=== PATIENT | male | born 1965 | race Caucasian/White ===

== ENCOUNTER 2016-08-13 16:13 | Emergency (ER) | payer SELFPAY ==
[~2016-08-13] VITALS: Ht 182.9 cm; Wt 137.9 kg
[2016-08-13 18:53] VITALS: BP 144/92
== END 2016-08-13 18:54 | disposition home or self-care (01) ==
LOC: EME 16:13
DX: I10 Essential (primary) hypertension (principal); M54.31 Sciatica, right side; L40.9 Psoriasis, unspecified
CPT/HCPCS: 99281; 99284

== ENCOUNTER 2017-05-18 20:21 | Inpatient (IN) | payer SELFPAY ==
[~2017-05-18] VITALS: Ht 182.9 cm; Wt 136.6 kg
[2017-05-18 20:54] LABS: HEMATOCRIT 40.7 % (38.0-50.0); MCH 30.6 PG (29.0-34.0); MCHC 34.4 G/DL (30.0-36.0); MCV 89.1 FL (86-99); MEAN PLAT.VOLUME 9.8 uM^3 (9.0-12.4); PLATELET COUNT 199 K/uL (156-360); RBC DIS.WIDTH-CV 12.6 % (11.8-14.6); RBC DIS.WIDTH-SD 41.1 % (39-53); RED BLOOD COUNT 4.57 M/uL (4.00-5.50); WHITE BLOOD COUNT 6.8 K/uL (4.1-10.2)
[2017-05-18 21:06] LABS: CHLORIDE 105 mEq/L (99-109); POTASSIUM 3.5 mEq/L (3.7-5.4); SODIUM 139 mEq/L (136-147)
[2017-05-18 21:08] LABS: GLUCOSE 121 mg/dL (70-99)
[2017-05-18 21:09] LABS: ANION GAP 9 MEQ/L (2-14)
[2017-05-18 21:10] LABS: TOTAL BILIRUBIN 1.2 mg/dL (0.0-1.0)
[2017-05-18 21:11] LABS: ALKALINE PHOSPHATASE 100 IU/L (3-129)
[2017-05-18 21:12] LABS: GFR ESTIMATE (CALCULATED) > 59 mL/min/ (58.99-99999)
[2017-05-18 21:13] LABS: UREA NITROGEN (BUN) 16 mg/dL (9-23)
[2017-05-18 21:15] LABS: LIPASE 33 U/L (1.0-51.0)
[2017-05-18 21:17] LABS: TROP-I INTERPRETATION NEGATIVE; TROPONIN-I < 0.01 ng/mL (0.0-0.30)
[2017-05-18 22:58] LABS: ADD MIUA? NO; BILIRUBIN NEGATIVE; BLOOD NEGATIVE; COLOR STRAW ((YELLOW)); GLUCOSE (STRIP) NEGATIVE; KETONES NEGATIVE; LEUKOCYTES NEGATIVE; NITRITE NEGATIVE; PROTEIN (STRIP) NEGATIVE; SPECIFIC GRAVITY 1.006 (1.000-1.030); UCUL ADDED? NO; UROBILINOGEN 0.2 MG/DL (0.2-1.0)
[2017-05-19] MEDS ORDERED: ALPRAZOLAM0.25 M2 PO (00:26)
[2017-05-19] MEDS ORDERED: NAPROSYN500 MG PO (00:26)
[2017-05-19] MEDS ORDERED: FLEXERIL10 MG PO (00:26)
[2017-05-19] MEDS ORDERED: LISINOPRIL5 MG PO (00:26)
[2017-05-19] MEDS ORDERED: ASPIR 8181 M1 PO (00:27)
[2017-05-19 02:13] VITALS: BP 138/88
[2017-05-19 05:54] LABS: EOSINOPHIL (%) 2.5 % (0-5); EOSINOPHIL COUNT 0.2 K/uL (0-0.3); HEMATOCRIT 39.3 % (38.0-50.0); IMMATURE GRANULOCYTE (%) 0.3 % (0.0-0.7); INSTRUMENT ABS NEUTROPHIL CT 4.2 K/uL; LYMPHOCYTE COUNT 1.5 K/uL (1.0-2.8); MCH 30.3 PG (29.0-34.0); MCHC 33.3 G/DL (30.0-36.0); MONOCYTE (%) 12.4 % (3-12); MONOCYTE COUNT 0.8 K/uL (0-0.8); NEUTROPHIL (%) 62.7 % (45-76); NEUTROPHIL COUNT 4.2 K/uL (1.8-6.4); PLATELET COUNT 150 K/uL (156-360); RBC DIS.WIDTH-CV 12.8 % (11.8-14.6); RBC DIS.WIDTH-SD 42.4 % (39-53); RED BLOOD COUNT 4.32 M/uL (4.00-5.50); WHITE BLOOD COUNT 6.8 K/uL (4.1-10.2)
[2017-05-19 06:15] LABS: TROP-I INTERPRETATION NEGATIVE; TROPONIN-I < 0.01 ng/mL (0.0-0.30)
[2017-05-19 06:24] LABS: HDL CHOLESTEROL 28 MG/DL (Desirable>=40); LDL CHOLESTEROL 129 mg/dL (Desirable<100); NON-HDL CHOLESTEROL 155 mg/dL (Desirable<160); TOTAL CHOLESTEROL 183 mg/dL (Desirable<200); TRIGLYCERIDES 129 MG/DL (Normal: <150)
[2017-05-19 09:50] VITALS: BP 137/76
[2017-05-19 12:35] VITALS: BP 149/91
[2017-05-19 16:22] LABS: TROP-I INTERPRETATION NEGATIVE; TROPONIN-I < 0.01 ng/mL (0.0-0.30)
[2017-05-19 17:37] VITALS: BP 132/78
== END 2017-05-19 18:54 | disposition home or self-care (01) | DRG 313 ==
LOC: EME 20:21 → EDOF 05-19 00:30 → ENRESERV 05-19 00:47 → 4EAST 05-19 02:04
PROVIDERS: Emergency Medicine; Internal Medicine
DX: R07.89 Other chest pain (principal); I10 Essential (primary) hypertension; K29.00 Acute gastritis without bleeding; E66.9 Obesity, unspecified; Z68.41 Body mass index [BMI] 40.0-44.9, adult; F41.9 Anxiety disorder, unspecified; L40.9 Psoriasis, unspecified; K21.9 Gastro-esophageal reflux disease without esophagitis; M19.90 Unspecified osteoarthritis, unspecified site; E78.5 Hyperlipidemia, unspecified; E87.6 Hypokalemia; R09.02 Hypoxemia; Z87.11 Personal history of peptic ulcer disease
CPT/HCPCS: 71275; 80053; 80061; 81003; 82306; 82607; 83690; 84484; 85025; 85027; 85379; 93005; 94640; 94799; 99281; 99285; J1644; J7030